=== PATIENT | female | born 1970 | race Caucasian/White ===

== ENCOUNTER 2016-12-23 19:27 | Emergency (ER) | payer OTHER | END 2016-12-23 20:31 | disposition left against medical advice (07) | LOC: EMS 19:29 | DX: M54.9 Dorsalgia, unspecified (principal); Z53.21 Procedure and treatment not carried out due to patient leaving prior to being seen by health care provider ==

== ENCOUNTER 2019-03-18 03:58 | Emergency (ER) | payer OTHER ==
[~2019-03-18] VITALS: Ht 157.5 cm; Wt 58.2 kg
[2019-03-18 04:21] LABS: APPEARANCE,URINE CLOUDY (CLEAR); BILIRUBIN,URINE NEGATIVE (NEGATIVE); GLUCOSE, URINE (UA) NEGATIVE (NEGATIVE); KETONES,URINE NEGATIVE (NEGATIVE); LEUKOCYTE ESTERASE ,URINE LARGE (NEGATIVE); NITRATE,URINE NEGATIVE (NEGATIVE); OCCULT BLOOD,URINE LARGE (NEGATIVE); PROTEIN,URINE SEE CONFIRM (NEGATIVE); UROBILINOGEN,URINE 0.2 mg/dL (<=1.0)
[2019-03-18 04:28] LABS: BACTERIA,URINE None Seen /HPF (None Seen); SQUAMOUS EPITHELIAL CELL,UR None Seen /LPF (None Seen); WBC,URINE >100 /HPF (0-5)
[2019-03-18 04:29] LABS: SULFOSALICYLIC ACID,URINE 1+ (Negative)
[2019-03-18] MEDS ORDERED: LIDOCAINE/PF 1% 2 ML VIAL IM ONE (07:30)
[2019-03-18] MEDS ORDERED: DOXYCYCLINE HYCLATE 100 MG CAPSULE PO ONE (07:30)
[2019-03-18] MEDS ORDERED: CefTRIAXone SODIUM 1 GM/VIAL IM ONE (07:30)
[2019-03-18] MEDS ORDERED: AZITHROMYCIN 250 MG TABLET PO ONE (07:30)
[2019-03-18 08:06] VITALS: BP 118/76
== END 2019-03-18 08:14 | disposition home or self-care (01) ==
LOC: EMS 04:02
DX: N73.9 Female pelvic inflammatory disease, unspecified (principal)
CPT/HCPCS: 81001; 87086; 96372; 99283; J0696; J3490